=== PATIENT | female | born 1965 | race Caucasian/White ===

== ENCOUNTER → 2017-05-27 08:15 | Outpatient (CLI) | payer BC, SELFPAY ==
[2017-05-27 09:13] LABS: Basophils % 0.5 % (0.1-2.0); Eosinophils # 0.2 K/mm3 (0.0-0.4); Hematocrit 37.1 % (37.0-47.0); Hemoglobin 11.1 g/dL (12.2-16.2); Lymphocytes # 2.1 K/mm3 (0.7-4.5); Lymphocytes % 29.1 K/mm3 (10-50); Mean Corpuscular HGB Conc 29.9 g/dL (31.8-35.4); Mean Corpuscular Hemoglobin 23.4 pg (27.0-31.2); Mean Corpuscular Volume 78.3 fl (81-99); Mean Platelet Volume 7.9 fl (7.4-10.4); Monocytes # 0.4 K/mm3 (0.1-1.0); Monocytes % 5.7 % (1.7-9.3); Neutrophils # 4.6 K/mm3 (1.8-7.8); Neutrophils % 62.7 % (37.0-80.0); Platelet Count 385 K/mm3 (142-424); Red Blood Count 4.74 M/mm3 (4.20-5.40); Red Cell Distribution Width 15.3 % (11.5-17.5); White Blood Count 7.4 K/mm3 (4.8-10.8)
[2017-05-27 09:16] LABS: Alanine Aminotransferase 22 U/L (12-78); Albumin Level 3.4 gm/dL (3.4-5.0); Albumin/Globulin Ratio 0.7 (1.1-1.8); Alkaline Phosphatase 88 U/L (46-116); Anion Gap 8.3 mEq/L (5-15); Aspartate Amino Transferase 14 U/L (15-37); Bilirubin,Total 0.2 mg/dL (0.2-1.0); Blood Urea Nitrogen 15 mg/dL (7-18); Calcium 8.8 mg/dL (8.5-10.1); Carbon Dioxide 30 mmol/L (21.0-32.0); Chloride 107 mmol/L (98-107); Chol/HDL Ratio 2.1 (1-3.5); Cholesterol 165 mg/dL (140-200); Creatinine,Serum 0.89 mg/dL (0.55-1.02); Estimated Glomerular Filt Rate 67 ml/min (>60); GFR (African American) 81 ML/MIN (>60); Globulin 4.6 gm/dl (1.3-3.2); Glucose 89 mg/dL (74-106); HDL Cholesterol 79 mg/dL (29-89); LDL Cholesterol 71 mg/dL (0-130); Potassium 4.3 mmoL/L (3.5-5.1); Sodium 141 mmol/L (136-145); Triglycerides 75 mg/dL (30-200); VLDL Cholesterol 15 mg/dL (0-40)
== END ==
PROVIDERS: Visit Provider Nurse Practitioner Obstetrics & Gynecology
DX: Z01.419 Encounter for gynecological examination (general) (routine) without abnormal findings (principal)
CPT/HCPCS: 36415; 80053; 80061; 85025

== ENCOUNTER → 2018-12-04 12:16 | Outpatient (CLI) | payer BC, SELFPAY ==
--- NOTE | 2018-12-04 12:37 | MM_ITS ---
PROCEDURE: MM DIG SCREENING MAMM BI W/CAD Patient Age:53Y CLINICAL INDICATION: Routine Screening Mammogram No hormones no new complaints noncontributory family history COMPARISON: [facility] DIG MAMM-SCREEN SEA from 10/01/2012 [facility] DIG MAMM-SCREEN SEA from 09/06/2014 [facility] DIG MAMM-SCREEN SEA from 09/11/2015 [facility] DIG MAMM-SCREEN SEA W/CAD from 09/23/2016 TECHNIQUE: Standard CC and MLO images were obtained. R2 CAD reviewed. FINDINGS: Bpup-ps-lpkasuos density breast. Mild asymmetry with with scattered fibroglandular elements slightly more evident throughout left breast. But no dominant mass or significant suspicious new findings in either breast. No suspicious calcifications, overall stable mammogram. CAD computer review unremarkable as well Left breast. Scattered small of areas density at the left breast have remained stable since multiple previous studies but most notable is a most likely intramammary node lateral left breast 4.5 Mm size but unchanged overall stable architecture. Right breast unremarkable stable follow-up 1 year recommended IMPRESSION: Stable mammogram No significant change since previous studies, no new areas of concern bilateral follow-up 1 year recommended BI-RAD Category: 2 Benign Finding(s) FOLLOW-UP: 1YR 1 Year Follow-up (A letter has been sent to the patient regarding results of the study.) Dictated by: Lisandro Teixeira MD 12/07/2018 21:26 Electronically signed by Lisandro Teixeira MD in [place] 12/07/2018 21:28
[2018-12-04 14:31] LABS: Basophils % 0.5 % (0.1-2.0); Eosinophils # 0.2 K/mm3 (0.0-0.4); Eosinophils % 2.3 % (0.1-12.0); Hematocrit 37.2 % (37.0-47.0); Hemoglobin 11.1 g/dL (12.2-16.2); Lymphocytes # 2.9 K/mm3 (0.7-4.5); Lymphocytes % 38.5 % (10-50); Mean Corpuscular HGB Conc 29.9 g/dL (31.8-35.4); Mean Corpuscular Hemoglobin 23.4 pg (27.0-31.2); Mean Corpuscular Volume 78.5 fl (81-99); Mean Platelet Volume 7.5 fl (7.4-10.4); Monocytes # 0.5 K/mm3 (0.1-1.0); Neutrophils % 52.7 % (37.0-80.0); Platelet Count 373 K/mm3 (142-424); Red Blood Count 4.74 M/mm3 (4.20-5.40); Red Cell Distribution Width 14.9 % (11.5-17.5); White Blood Count 7.6 K/mm3 (4.8-10.8)
[2018-12-04 17:34] LABS: Alanine Aminotransferase 20 U/L (12-78); Albumin Level 3.8 gm/dL (3.4-5.0); Albumin/Globulin Ratio 1.1 (1.1-1.8); Alkaline Phosphatase 74 U/L (46-116); Anion Gap 13.1 mEq/L (5-15); Aspartate Amino Transferase 20 U/L (15-37); Bilirubin,Total 0.3 mg/dL (0.2-1.0); Blood Urea Nitrogen 10 mg/dL (7-18); Calcium 9.2 mg/dL (8.5-10.1); Carbon Dioxide 28 mmol/L (21.0-32.0); Chloride 105 mmol/L (98-107); Creatinine,Serum 0.85 mg/dL (0.55-1.02); Estimated Glomerular Filt Rate 70 ml/min (>60); GFR (African American) 85 ML/MIN (>60); Globulin 3.6 gm/dl (1.3-3.2); Glucose 81 mg/dL (74-106); Potassium 5.1 mmoL/L (3.5-5.1); Sodium 141 mmol/L (136-145); Total Protein,Serum 7.4 gm/dL (6.4-8.2)
== END ==
PROVIDERS: PCP Pediatrics; Visit Provider Nurse Practitioner Obstetrics & Gynecology
DX: Z01.419 Encounter for gynecological examination (general) (routine) without abnormal findings (principal); Z12.31 Encounter for screening mammogram for malignant neoplasm of breast
CPT/HCPCS: 36415; 77067; 80053; 85025

== ENCOUNTER → 2019-12-06 08:39 | Outpatient (CLI) | payer BC, SELFPAY ==
--- NOTE | 2019-12-06 08:39 | MM_ITS ---
PROCEDURE: MM DIG SCREENING MAMM BI W/CAD Digital Breast Tomosynthesis Included CLINICAL INDICATION: Routine Screening Mammogram There is no personal or family history of breast cancer. COMPARISON: MG [facility]MSB DIG MAMM-SCREEN SEA from 09/11/2015 MG [facility] DIG MAMM-SCREEN SEA W/CAD from 09/23/2016 MG MM DIG SCREENING MAMM BI W/CAD from 12/04/2018 TECHNIQUE: Standard CC and MLO images and 3D Tomosynthesis was obtained. R2 CAD reviewed. FINDINGS: Moderate scattered fibroglandular densities are seen throughout both breasts. The findings are fairly symmetrical bilaterally. There is a stable benign-appearing nodular density central portion left breast. There is no suspicious lesion in either breast and no suspicious microcalcifications. IMPRESSION: Mild to moderate breast density with no suspicious lesions seen BI-RAD Category: 2 Benign Finding(s) FOLLOW-UP: 1YR 1 Year Follow-up (A letter has been sent to the patient regarding results of the study.) Dictated by: Dr. Deep Graham MD 12/12/2019 17:00 Dr. Deep Graham MD in [place] 12/12/2019 17:00
== END ==
PROVIDERS: PCP Pediatrics; Visit Provider Nurse Practitioner Obstetrics & Gynecology
DX: Z12.31 Encounter for screening mammogram for malignant neoplasm of breast (principal)
CPT/HCPCS: 77063; 77067

== ENCOUNTER → 2019-12-06 09:39 | Outpatient (CLI) | payer BC, SELFPAY ==
[2019-12-06 09:57] LABS: Basophils # 0.1 K/mm3 (0-0.2); Basophils % 0.7 % (0.1-2.0); Eosinophils # 0.2 K/mm3 (0.0-0.4); Hematocrit 35.5 % (37.0-47.0); Hemoglobin 11.3 g/dL (12.2-16.2); Lymphocytes # 2.3 K/mm3 (0.7-4.5); Lymphocytes % 32.4 % (10-50); Mean Corpuscular HGB Conc 31.8 g/dL (31.8-35.4); Mean Corpuscular Hemoglobin 24.8 pg (27.0-31.2); Mean Corpuscular Volume 77.8 fl (81-99); Mean Platelet Volume 7.7 fl (7.4-10.4); Monocytes # 0.3 K/mm3 (0.1-1.0); Monocytes % 4.6 % (1.7-9.3); Neutrophils # 4.3 K/mm3 (1.8-7.8); Neutrophils % 60.2 % (37.0-80.0); Platelet Count 333 K/mm3 (142-424); Red Blood Count 4.56 M/mm3 (4.20-5.40); Red Cell Distribution Width 15.5 % (11.5-17.5); White Blood Count 7.2 K/mm3 (4.8-10.8)
[2019-12-06 10:51] LABS: Alanine Aminotransferase 16 U/L (12-78); Albumin Level 4.1 g/dl (3.5-5.0); Albumin/Globulin Ratio 1.3 (1.1-1.8); Alkaline Phosphatase 90 U/L (38-126); Anion Gap 13.1 mEq/L (5-15); Aspartate Amino Transferase 24 U/L (14-36); Bilirubin,Total 0.3 mg/dl (0.2-1.3); Blood Urea Nitrogen 17 mg/dl (7-17); Calcium 9.4 mg/dl (8.4-10.2); Carbon Dioxide 26 mmol/L (22.0-30.0); Chloride 108 mmol/L (98-107); Chol/HDL Ratio 2.1 (1-3.5); Cholesterol 173 mg/dl (140-200); Estimated Glomerular Filt Rate 65 ml/min (>60); GFR (African American) 79 ML/MIN (>60); Globulin 3.2 g/dL (1.3-3.2); Glucose 99 mg/dl (74-100); HDL Cholesterol 84 mg/dl (40-60); Potassium 5.1 mmoL/L (3.5-5.1); Sodium 142 mmol/L (136-145); Total Protein,Serum 7.3 g/dl (6.3-8.2); Triglycerides 89 mg/dl (30-150); VLDL Cholesterol 18 mg/dL (0-40)
[2019-12-06 11:03] LABS: Direct LDL Cholesterol 77.97 mg/dL (100-129)
== END ==
PROVIDERS: Visit Provider Nurse Practitioner Obstetrics & Gynecology
DX: Z01.419 Encounter for gynecological examination (general) (routine) without abnormal findings (principal)
CPT/HCPCS: 36415; 80053; 80061; 85025

== ENCOUNTER → 2021-01-24 07:59 | Outpatient (CLI) | payer BC, SELFPAY ==
--- NOTE | 2021-01-24 08:00 | MM_ITS ---
PROCEDURE INFORMATION: Exam: MG Bilateral Screening 3D Mammography Exam date and time: 01/24/2021 8:00 AM Age: 55 years old Clinical indication: Encounter for screening mammogram for malignant neoplasm of breast TECHNIQUE: Imaging protocol: Bilateral screening tomosynthesis and 2D mammography including computer-aided detection (CAD) when performed. COMPARISON: 1. MG MM DIG SCREENING MAMM BI W/CAD 12/06/2019 8:47 AM 2. MG MM DIG SCREENING MAMM BI W/CAD 12/04/2018 1:04 PM FINDINGS: MAMMOGRAPHY: Breast composition: The breast tissue is composed of scattered areas of fibroglandular density. Mass: None. Architectural distortion: None. Calcifications: No suspicious calcifications. Asymmetric density: None. Skin thickening: None. Axillary adenopathy: None. IMPRESSION: No mammographic evidence of malignancy. Annual screening is recommended unless otherwise clinically indicated. ASSESSMENT: BI-RADS Category 1: Negative
[2021-01-24 09:20] LABS: Basophils # 0.1 K/mm3 (0-0.2); Basophils % 1.1 % (0.1-2.0); Eosinophils # 0.2 K/mm3 (0.0-0.4); Eosinophils % 2.2 % (0.1-12.0); Hematocrit 36.3 % (37.0-47.0); Hemoglobin 11.2 g/dL (12.2-16.2); Lymphocytes # 2.7 K/mm3 (0.7-4.5); Lymphocytes % 35.5 % (10-50); Mean Corpuscular HGB Conc 30.8 g/dL (31.8-35.4); Mean Corpuscular Volume 77.8 fl (81-99); Mean Platelet Volume 8.2 fl (7.4-10.4); Monocytes # 0.4 K/mm3 (0.1-1.0); Monocytes % 5.1 % (1.7-9.3); Neutrophils # 4.3 K/mm3 (1.8-7.8); Neutrophils % 56.1 % (37.0-80.0); Platelet Count 378 K/mm3 (142-424); Red Blood Count 4.67 M/mm3 (4.20-5.40); Red Cell Distribution Width 15.8 % (11.5-17.5); White Blood Count 7.6 K/mm3 (4.8-10.8)
[2021-01-24 10:06] LABS: Chloride 105 mmol/L (98-107)
[2021-01-24 10:07] LABS: Potassium 4.8 mmoL/L (3.5-5.1); Sodium 141 mmol/L (136-145)
[2021-01-24 10:09] LABS: Alanine Aminotransferase 11 U/L (12-78); Albumin Level 4.4 g/dl (3.5-5.0); Albumin/Globulin Ratio 1.5 (1.1-1.8); Alkaline Phosphatase 73 U/L (38-126); Anion Gap 12.8 mEq/L (5-15); Aspartate Amino Transferase 26 U/L (14-36); Bilirubin,Total 0.2 mg/dl (0.2-1.3); Blood Urea Nitrogen 16 mg/dl (7-17); Carbon Dioxide 28 mmol/L (22.0-30.0); Cholesterol 178 mg/dl (140-200); Estimated Glomerular Filt Rate 74 ml/min (>60); GFR (African American) 90 ML/MIN (>60); Total Protein,Serum 7.4 g/dl (6.3-8.2); Triglycerides 65 mg/dl (30-150); VLDL Cholesterol 13 mg/dL (0-40)
[2021-01-24 10:10] LABS: Calcium 9.4 mg/dl (8.4-10.2); Chol/HDL Ratio 1.9 (1-3.5); Glucose 95 mg/dl (74-100); HDL Cholesterol 95 mg/dl (40-60)
[2021-01-24 10:22] LABS: Direct LDL Cholesterol 66.92 mg/dL (100-129)
[2021-01-24 10:27] LABS: Free Thyroxine Index 1.8 ug/dL (5.93-13.13); T4 (Thyroxine) 7.1 ug/dl (5.53-11.0); Triiodothryronine (T3) Uptake 26 % (23.5-40.5)
[2021-01-24 10:45] LABS: Ferritin 4.84 ng/ml (11.1-264)
== END ==
PROVIDERS: PCP Pediatrics; Visit Provider Nurse Practitioner Obstetrics & Gynecology
DX: Z12.31 Encounter for screening mammogram for malignant neoplasm of breast (principal); R53.82 Chronic fatigue, unspecified
CPT/HCPCS: 36415; 77063; 77067; 80053; 80061; 82728; 84436; 84443; 84479; 85025

== ENCOUNTER → 2022-04-22 08:02 | Outpatient (CLI) | payer BC, SELFPAY ==
--- NOTE | 2022-04-22 08:09 | MM_ITS ---
PROCEDURE INFORMATION: Exam: MG Bilateral Screening 3D Mammography Exam date and time: 04/22/2022 8:01 AM Age: 57 years old Clinical indication: Screening mammogram TECHNIQUE: Imaging protocol: Bilateral Screening tomosynthesis and 2D mammography including computer-aided detection (CAD) when performed. COMPARISON: 1. MG MM DIG SCREENING MAMM BI W/CAD 01/24/2021 8:01 AM 2. MG MM DIG SCREENING MAMM BI W/CAD 12/06/2019 8:47 AM 3. MG MM DIG SCREENING MAMM BI W/CAD 12/04/2018 1:04 PM 4. MG DMSB DIG MAMM-SCREEN SEA W/CAD 09/23/2016 11:03 AM FINDINGS: MAMMOGRAPHY: Breast composition: There are scattered areas of fibroglandular density. Mass: Stable benign-appearing subcentimeter nodules are present in the left breast. No new or morphologically suspicious nodule has developed to suggest malignancy. Architectural distortion: No new or suspicious architectural distortion. Calcifications: No new or suspicious calcifications are present Asymmetric density: No new or suspicious asymmetric density is present Skin thickening: None. Axillary adenopathy: None. IMPRESSION: No mammographic evidence of malignancy. Recommend annual screening mammography unless otherwise clinically indicated. ASSESSMENT: BI-RADS category 2: Benign
== END ==
PROVIDERS: PCP Pediatrics; Visit Provider Nurse Practitioner Obstetrics & Gynecology
DX: Z12.31 Encounter for screening mammogram for malignant neoplasm of breast (principal)
CPT/HCPCS: 36415; 77063; 77067; 83540; 83550; 85025

== ENCOUNTER → 2022-07-03 16:20 | Outpatient (CLI) | payer BC, SELFPAY ==
[2022-07-03 17:57] LABS: Basophils % 0.5 % (0.1-2.0); Eosinophils # 0.1 K/mm3 (0.0-0.4); Eosinophils % 1.9 % (0.1-12.0); Hematocrit 33.7 % (37.0-47.0); Hemoglobin 9.8 g/dL (12.2-16.2); Lymphocytes # 2.7 K/mm3 (0.7-4.5); Mean Corpuscular HGB Conc 29.2 g/dL (31.8-35.4); Mean Corpuscular Hemoglobin 21.7 pg (27.0-31.2); Mean Corpuscular Volume 74.4 fl (81-99); Mean Platelet Volume 6.7 fl (7.4-10.4); Monocytes # 0.4 K/mm3 (0.1-1.0); Monocytes % 5.2 % (1.7-9.3); Neutrophils # 4.1 K/mm3 (1.8-7.8); Neutrophils % 55.4 % (37.0-80.0); Platelet Count 336 K/mm3 (142-424); Red Blood Count 4.54 M/mm3 (4.20-5.40); Red Cell Distribution Width 16.1 % (11.5-17.5); White Blood Count 7.4 K/mm3 (4.8-10.8)
[2022-07-04 16:24] LABS: Iron 27 ug/dL (37-170)
[2022-07-04 16:30] LABS: Total Iron Binding Capacity 518 ug/dL (265-497)
[2022-07-04 20:53] LABS: Folate > 20.00 ng/mL
[2022-07-04 21:41] LABS: Ferritin 4.12 ng/ml (11.1-264)
[2022-07-05 09:26] LABS: Vitamin B12 396 pg/mL (239-931)
== END ==
PROVIDERS: PCP Pediatrics; Visit Provider Nurse Practitioner Obstetrics & Gynecology
DX: D64.9 Anemia, unspecified (principal)
CPT/HCPCS: 82607; 82728; 82746; 83540; 83550; 85025

== ENCOUNTER → 2022-07-04 13:34 | Outpatient (CLI) | payer BC, SELFPAY | PROVIDERS: PCP Nurse Practitioner Obstetrics & Gynecology; Visit Provider Nurse Practitioner Obstetrics & Gynecology | DX: D64.9 Anemia, unspecified (principal) | CPT/HCPCS: 82607; 82728; 82746; 83540; 83550 ==

== ENCOUNTER 2022-08-30 10:40 | Day surgery (SDC) | payer BC, SELFPAY ==
[2022-08-29 09:42] VITALS: BMI 31.5
[2022-08-30 11:04] VITALS: BP 141/85; PULSE 71; RESP 18; TEMP 36.6; O2SAT 97
--- NOTE | 2022-08-30 11:18 | EXP.ANES.CKL ---
[facility] Disclaimer: The information contained in this section may have been updated after the patient was seen, as this information can be updated by other users. Medical History History of anemia History of COVID-19 Surgical History No history of previous surgery Family History Other Cancer Social History Smoking Status: Never smoker alcohol intake: never substance use type: denies use current occupational status: employed Travel in the last 8 weeks: None [facility] Anesthesia Checklist Patient Identification Patient Identification: Arm Band and Verbal (Name & ) Structural Data Admitted From: Home Planned Operative Procedure/s: EGD/Colonoscopy Consent for Planned Operative Procedure(s) Verified: Yes NPO Status Verified Time NPO: 00:00 Airway Assessment C-Spine Mobility Assessed: Yes TMJ Mobility Assessed: Yes Dentition: Good Dentition Neurological Assessment Level of Consciousness: Awake Hx Seizures: No Numbness or tingling in extremities: No Anesthesia Plan Anesthesia Risk discussed: Yes Anesthesia Plan: Verified ASA Class: I Anesthesia Type: MAC
[2022-08-30 11:26] VITALS: O2SAT 97
[2022-08-30 12:05] VITALS: BP 110/61; PULSE 64; RESP 18; TEMP 36.3; O2SAT 100
--- NOTE | 2022-08-30 12:05 | HMH.SCOPE ---
Procedure: Date: 08/30/22 Patient Date of :: 1965 Procedure Performed:: Esophagogastroduodenoscopy with biopsy Total colonoscopy with polypectomy using biopsy forceps Indications:: Patient is a pleasant 57-year-old female referred by Dr. Uriel Loyola for iron deficiency anemia. She is a schoolteacher. Patient states that she has had borderline anemia for many years. She was undergoing a recent routine wellness check in Dr. Loyola's office and was found to have anemia. She was started on some ygzv-ogt-qhuoedp iron supplementation. She then followed up in his office recently for repeat blood work. She was found to have progressive anemia with hemoglobin of 9.8. Previously hemoglobin is 11. Repeat iron studies after [id number] supplementation reveals somewhat lower total iron of 27, total iron binding capacity of 518, ferritin 4.12. B12 is 396. She denies melena or rectal bleeding but her stools have changed since she has been taking some relatively high-dose [id number] iron supplementation. She never had prior colonoscopy. She did previously undergo Cologuard several years ago which was reportedly negative. Performing Provider:: Gonzalo Garsia MD Referring Provider:: Uriel Hewitt Sedation:: MAC sedation Procedure:: Patient history was obtained and appropriate physical examination was performed. Patient's medications and allergies were reviewed. Informed consent was obtained after explaining the benefits, alternatives, and risks of the procedure including, but not limited to, bleeding, perforation, missed lesions, and adverse reaction to anesthesia medications. Patient was transported to endoscopy procedure room. Patient was connected to monitoring devices. Throughout the procedure the patient's blood pressure, pulse, and oxygen saturations were monitored continuously. Patient identification and planned procedure were verified by the staff. Attention was first turned to upper endoscopy. Olympus endoscope was inserted via the oropharynx. There was some minor cricopharyngeal spasm. Esophagus appeared normal. Gastroesophageal junction was encountered at 38 cm from the incisors. Stomach was cannulated and insufflated. Retroflexion revealed no evidence of any hiatal hernia. There is some diffuse mild nonerosive gastropathy. Pylorus was traversed. Duodenum appeared normal. A couple of biopsies were obtained within the gastric lumen. A couple biopsies were obtained at the gastroesophageal junction. Endoscope was withdrawn. Attention was then turned to colonoscopy. Patient was positioned in lateral decubitus position. Digital anorectal exam was performed. Variable stiffness Olympus colonoscope was inserted and advanced under direct visualization to the cecum. Adequacy of the colonic preparation was noted. The colonoscope was advanced a short distance into the terminal ileum. The colonoscope was then slowly withdrawn while carefully examining the color, texture, anatomy, and integrity of the mucosoa circumferentially. Within the rectum retroflexion was performed. Colonoscope was then withdrawn. . She had some colonic atony and redundancy. There was a minuscule periappendiceal polyp which was removed with cold biopsy forceps. This was sent as cecal polyp. Remainder of the colon unremarkable. Findings:: Gastroesophageal junction at 38 cm Mild diffuse nonerosive gastropathy Minuscule periappendiceal cecal polyp Recommendations:: No etiology on EGD or colonoscopy that would explain iron deficiency anemia. Unclear if she has had stool testing. May be etiology other than GI blood loss source. Consideration may be given for hematology consultation. Repeat colonoscopy pending pathology, likely 5 years Complications:: None immediate Estimated blood obtained (mL): 1 Colonoscopy Component Colonoscopy Component Was a colonoscopy performed during today's procedure?: Yes Recommended follow up colonoscopy of
[2022-08-30 12:15] VITALS: BP 105/72; PULSE 66; RESP 18; O2SAT 100
[2022-08-30 12:30] VITALS: BP 120/80; PULSE 66; RESP 18; O2SAT 100
== END 2022-08-30 12:33 | disposition home or self-care (01) ==
PROVIDERS: PCP Pediatrics; Visit Provider Surgery
PROC: 0DJ08ZZ Inspection of Upper Intestinal Tract, Via Natural or Artificial Opening Endoscopic (ICD-10-PCS; CPT 43235; principal; 2022-08-30 11:30)
DX: D50.9 Iron deficiency anemia, unspecified (principal); B96.81 Helicobacter pylori [H. pylori] as the cause of diseases classified elsewhere; K29.70 Gastritis, unspecified, without bleeding; K31.A0 Gastric intestinal metaplasia, unspecified; K20.90 Esophagitis, unspecified without bleeding; D12.0 Benign neoplasm of cecum
CPT/HCPCS: 43239; 45380

== ENCOUNTER → 2022-11-21 15:00 | Outpatient (CLI) | payer BC, SELFPAY ==
[2022-11-21 17:08] LABS: Basophils % 0.4 % (0.1-2.0); Chloride 108 mmol/L (98-107); Eosinophils # 0.1 K/mm3 (0.0-0.4); Eosinophils % 1.6 % (0.1-12.0); Hematocrit 38.4 % (37.0-47.0); Hemoglobin 12.1 g/dL (12.2-16.2); Lymphocytes # 2.8 K/mm3 (0.7-4.5); Lymphocytes % 34.9 % (10-50); Mean Corpuscular HGB Conc 31.6 g/dL (31.8-35.4); Mean Corpuscular Hemoglobin 27.4 pg (27.0-31.2); Mean Corpuscular Volume 86.5 fl (81-99); Mean Platelet Volume 8.3 fl (7.4-10.4); Monocytes # 0.4 K/mm3 (0.1-1.0); Monocytes % 4.7 % (1.7-9.3); Neutrophils # 4.7 K/mm3 (1.8-7.8); Neutrophils % 58.4 % (37.0-80.0); Platelet Count 310 K/mm3 (142-424); Red Blood Count 4.43 M/mm3 (4.20-5.40); Red Cell Distribution Width 14.8 % (11.5-17.5); Sodium 143 mmol/L (136-145); White Blood Count 8.1 K/mm3 (4.8-10.8)
[2022-11-21 17:10] LABS: Alanine Aminotransferase 21 U/L (12-78); Aspartate Amino Transferase 26 U/L (14-36); Blood Urea Nitrogen 12 mg/dl (7-17); Estimated Glomerular Filt Rate 74 ml/min (>60); GFR (African American) 89 ML/MIN (>60)
[2022-11-21 17:11] LABS: Albumin Level 4.1 g/dl (3.5-5.0); Albumin/Globulin Ratio 1.3 (1.1-1.8); Alkaline Phosphatase 73 U/L (38-126); Calcium 8.8 mg/dl (8.4-10.2); Carbon Dioxide 26 mmol/L (22.0-30.0); Globulin 3.1 g/dL (1.3-3.2); Glucose 86 mg/dl (74-100); Iron 42 ug/dL (37-170); Total Protein,Serum 7.2 g/dl (6.3-8.2)
[2022-11-21 17:12] LABS: Bilirubin,Total 0.1 mg/dl (0.2-1.3)
[2022-11-21 17:22] LABS: Total Iron Binding Capacity 475 ug/dL (265-497)
[2022-11-21 17:47] LABS: Ferritin 6.35 ng/ml (11.1-264)
[2022-11-23 11:17] LABS: Haptoglobin 247 mg/dL (33-346)
[2022-11-23 14:37] LABS: Deamidated Gliadin Abs, IgA 5 units (0-19); Deamidated Gliadin Abs, IgG 3 units (0-19); Tissue Transglutaminase IgA Ab <2 U/mL (0-3); Tissue Transglutaminase IgG Ab 5 U/mL (0-5)
[2022-11-25 15:58] LABS: Endomysial IgA Antibody Negative (Negative)
[2022-11-27 08:52] LABS: Reticulin IgA Antibody Negative titer (Neg:<1:2.5)
== END ==
PROVIDERS: PCP Pediatrics; Visit Provider Internal Medicine Medical Oncology
DX: D50.9 Iron deficiency anemia, unspecified (principal)
CPT/HCPCS: 36415; 80053; 82728; 83010; 83516; 83540; 83550; 85025; 86255; 86256

== ENCOUNTER 2022-11-27 15:38 | Outpatient (CLI) | payer BC, SELFPAY ==
[2022-11-27 16:05] VITALS: BP 153/85; PULSE 70; RESP 16; O2SAT 96
--- NOTE | 2022-11-27 16:38 | PC.NURSE ---
report received from Sally Granado RN, velma infusing and pt in stable condition. Assuming the care of the pt at this time.
[2022-11-27 16:54] VITALS: BP 146/90; PULSE 71; RESP 18; O2SAT 98
== END 2022-11-27 16:56 | disposition home or self-care (01) ==
LOC: INF 15:39
PROVIDERS: PCP Pediatrics; Visit Provider Internal Medicine Medical Oncology
DX: D50.9 Iron deficiency anemia, unspecified (principal)
CPT/HCPCS: 96365; J1756

== ENCOUNTER 2022-12-04 15:31 | Outpatient (CLI) | payer BC, SELFPAY ==
[2022-12-04 15:46] VITALS: BP 110/86; PULSE 68; RESP 18; TEMP 36.7; O2SAT 97
[2022-12-04 16:30] VITALS: BP 114/82; PULSE 70; RESP 18; O2SAT 97
== END 2022-12-04 16:33 | disposition home or self-care (01) ==
LOC: INF 15:32
PROVIDERS: PCP Pediatrics; Visit Provider Internal Medicine Medical Oncology
DX: D50.9 Iron deficiency anemia, unspecified (principal)
CPT/HCPCS: 96365; J1756

== ENCOUNTER 2022-12-09 08:57 | Outpatient (CLI) | payer BC, SELFPAY ==
[2022-12-09 09:25] VITALS: BP 161/86; PULSE 74; RESP 18; TEMP 37; O2SAT 96
[2022-12-09 10:09] VITALS: BP 151/82; PULSE 70; RESP 18; O2SAT 97
== END 2022-12-09 10:10 | disposition home or self-care (01) ==
LOC: INF 08:58
PROVIDERS: PCP Pediatrics; Visit Provider Internal Medicine Medical Oncology
DX: D50.9 Iron deficiency anemia, unspecified (principal)
CPT/HCPCS: 96365; J1756

== ENCOUNTER 2022-12-16 15:34 | Outpatient (CLI) | payer BC, SELFPAY ==
[2022-12-16 15:53] VITALS: BP 137/89; PULSE 77; RESP 18; TEMP 36.7; O2SAT 98
[2022-12-16 16:30] VITALS: BP 154/83; PULSE 55; RESP 18; O2SAT 98
== END 2022-12-16 16:35 | disposition home or self-care (01) ==
LOC: INF 15:35
PROVIDERS: PCP Pediatrics; Visit Provider Internal Medicine Medical Oncology
DX: D50.9 Iron deficiency anemia, unspecified (principal)
CPT/HCPCS: 96365; J1756

== ENCOUNTER 2022-12-25 15:35 | Outpatient (CLI) | payer BC, SELFPAY ==
[2022-12-25 15:49] VITALS: BP 143/90; PULSE 75; RESP 18; O2SAT 99
[2022-12-25 16:19] VITALS: BP 144/103; PULSE 78; RESP 18
== END 2022-12-25 16:19 | disposition home or self-care (01) ==
LOC: INF 15:35
PROVIDERS: PCP Pediatrics; Visit Provider Internal Medicine Medical Oncology
DX: D50.9 Iron deficiency anemia, unspecified (principal)
CPT/HCPCS: 96365; J1756

== ENCOUNTER → 2023-02-06 16:06 | Outpatient (CLI) | payer BC, SELFPAY ==
[2023-02-06 16:49] LABS: Basophils # 0.1 K/mm3 (0-0.2); Basophils % 0.6 % (0.1-2.0); Eosinophils # 0.2 K/mm3 (0.0-0.4); Eosinophils % 1.7 % (0.1-12.0); Hematocrit 41.6 % (37.0-47.0); Lymphocytes % 34.7 % (10-50); Mean Corpuscular HGB Conc 33.7 g/dL (31.8-35.4); Mean Corpuscular Hemoglobin 30.4 pg (27.0-31.2); Mean Corpuscular Volume 90.4 fl (81-99); Mean Platelet Volume 7.9 fl (7.4-10.4); Monocytes # 0.4 K/mm3 (0.1-1.0); Monocytes % 5.1 % (1.7-9.3); Neutrophils # 5.1 K/mm3 (1.8-7.8); Platelet Count 283 K/mm3 (142-424); Red Cell Distribution Width 14.4 % (11.5-17.5); White Blood Count 8.7 K/mm3 (4.8-10.8)
[2023-02-06 17:08] LABS: Iron 89 ug/dL (37-170)
[2023-02-06 17:18] LABS: Total Iron Binding Capacity 340 ug/dL (265-497)
[2023-02-06 17:44] LABS: Ferritin 86.4 ng/ml (11.1-264)
== END ==
PROVIDERS: PCP Pediatrics; Visit Provider Internal Medicine Medical Oncology
DX: D50.9 Iron deficiency anemia, unspecified (principal)
CPT/HCPCS: 36415; 82728; 83540; 83550; 85025

== ENCOUNTER 2023-06-11 11:26 | Outpatient (CLI) | payer BC, SELFPAY ==
[2023-06-11 12:12] LABS: Basophils # 0.1 K/mm3 (0-0.2); Basophils % 1.5 % (0.1-2.0); Eosinophils # 0.1 K/mm3 (0.0-0.4); Eosinophils % 1.5 % (0.1-12.0); Hematocrit 44.2 % (37.0-47.0); Hemoglobin 14.3 g/dL (12.2-16.2); Lymphocytes # 2.3 K/mm3 (0.7-4.5); Lymphocytes % 34.1 % (10-50); Mean Corpuscular HGB Conc 32.3 g/dL (31.8-35.4); Mean Corpuscular Hemoglobin 30.5 pg (27.0-31.2); Mean Corpuscular Volume 94.4 fl (81-99); Mean Platelet Volume 7.8 fl (7.4-10.4); Monocytes # 0.4 K/mm3 (0.1-1.0); Monocytes % 5.3 % (1.7-9.3); Neutrophils # 3.9 K/mm3 (1.8-7.8); Neutrophils % 57.8 % (37.0-80.0); Platelet Count 255 K/mm3 (142-424); Red Blood Count 4.68 M/mm3 (4.20-5.40); White Blood Count 6.8 K/mm3 (4.8-10.8)
[2023-06-11 12:42] LABS: Iron 109 ug/dL (37-170)
[2023-06-11 12:54] LABS: Total Iron Binding Capacity 295 ug/dL (265-497)
[2023-06-11 13:19] LABS: Ferritin 73.3 ng/ml (11.1-264)
== END 2023-06-11 23:59 | disposition home or self-care (01) ==
LOC: LAB 11:27
PROVIDERS: PCP Pediatrics; Visit Provider Internal Medicine Medical Oncology
DX: D50.9 Iron deficiency anemia, unspecified (principal)
CPT/HCPCS: 36415; 82728; 83540; 83550; 85025

== ENCOUNTER 2024-06-04 12:54 | Outpatient (CLI) | payer BC, SELFPAY ==
--- NOTE | 2024-06-04 13:30 | MM_ITS ---
PROCEDURE INFORMATION: Exam: MG Bilateral Screening 3D Mammography Exam date and time: 06/04/2024 1:30 PM Age: 59 years old Clinical indication: Screening. No family history of breast cancer. TECHNIQUE: Imaging protocol: Bilateral Screening tomosynthesis and 2D mammography including computer-aided detection (CAD) when performed. COMPARISON: 1. MG MM DIG SCREENING MAMM BI W/CAD 04/22/2022 8:01 AM 2. MG MM DIG SCREENING MAMM BI W/CAD 01/24/2021 8:01 AM 3. MG MM DIG SCREENING MAMM BI W/CAD 12/06/2019 8:47 AM 4. MG MM DIG SCREENING MAMM BI W/CAD 12/04/2018 1:04 PM FINDINGS: MAMMOGRAPHY: Breast composition: There are scattered areas of fibroglandular density. Mass: No suspicious mass. Architectural distortion: None. Calcifications: No suspicious calcifications. Asymmetric density: No developing asymmetry. Skin thickening: None. Axillary adenopathy: None. IMPRESSION: No mammographic evidence of malignancy. Annual screening is recommended unless otherwise clinically indicated. ASSESSMENT: BI-RADS Category 1: Negative.
[2024-06-04 13:31] LABS: Basophils % 0.5 % (0.1-2.0); Eosinophils # 0.1 K/mm3 (0.0-0.4); Eosinophils % 0.9 % (0.1-12.0); Hematocrit 41.2 % (37.0-47.0); Hemoglobin 13.8 g/dL (12.2-16.2); Lymphocytes # 2.5 K/mm3 (0.7-4.5); Lymphocytes % 31.2 % (10-50); Mean Corpuscular HGB Conc 33.5 g/dL (31.8-35.4); Mean Corpuscular Hemoglobin 29.2 pg (27.0-31.2); Mean Corpuscular Volume 87.3 fl (81-99); Mean Platelet Volume 9.8 fl (7.4-10.4); Monocytes # 0.5 K/mm3 (0.1-1.0); Monocytes % 6.1 % (1.7-9.3); Neutrophils # 4.8 K/mm3 (1.8-7.8); Neutrophils % 60.9 % (37.0-80.0); Platelet Count 303 K/mm3 (142-424); Red Blood Count 4.72 M/mm3 (4.20-5.40); Red Cell Distribution Width 12.8 % (11.5-17.5); White Blood Count 7.9 K/mm3 (4.8-10.8)
[2024-06-04 14:24] LABS: Alanine Aminotransferase 20 U/L (12-78); Albumin Level 4.4 g/dl (3.5-5.0); Albumin/Globulin Ratio 1.4 (1.1-1.8); Alkaline Phosphatase 86 U/L (38-126); Anion Gap 12.4 mEq/L (5-15); Aspartate Amino Transferase 23 U/L (14-36); Bilirubin,Total 0.6 mg/dl (0.2-1.3); Blood Urea Nitrogen 13 mg/dl (7-17); Calcium 9.9 mg/dl (8.4-10.2); Carbon Dioxide 29 mmol/L (22.0-30.0); Chloride 104 mmol/L (98-107); Cholesterol 178 mg/dl (140-200); Estimated Glomerular Filt Rate 64 ml/min (>60); GFR (African American) 78 ML/MIN (>60); Globulin 3.2 g/dL (1.3-3.2); Glucose 91 mg/dl (74-100); HDL Cholesterol 88 mg/dl (40-60); Potassium 4.4 mmoL/L (3.5-5.1); Sodium 141 mmol/L (136-145); Total Protein,Serum 7.6 g/dl (6.3-8.2); Triglycerides 112 mg/dl (30-150); VLDL Cholesterol 22 mg/dL (0-40)
[2024-06-04 14:35] LABS: Direct LDL Cholesterol 69.07 mg/dL (100-129)
[2024-06-04 14:43] LABS: Iron 120 ug/dL (37-170)
[2024-06-04 14:52] LABS: Total Iron Binding Capacity 348 ug/dL (265-497)
[2024-06-04 15:23] LABS: HIV Combo NEGATIVE (Negative)
[2024-06-04 15:32] LABS: Hepatitis C Ab Qual. W/ RFX NEGATIVE (Negative)
[2024-06-07 12:07] LABS: Triiodothryronine (T3) Uptake 29 % (23.5-40.5)
[2024-06-14 15:42] LABS: 1,25 Dihydroxy Vitamin D 36 pg/mL (.); 1,25-Dihydroxy, Vitamin D-2 <10 pg/mL (.); 1,25-Dihydroxy, Vitamin D-3 34 pg/mL (.)
== END 2024-06-04 23:59 | disposition home or self-care (01) ==
LOC: RAD 12:55
PROVIDERS: PCP Pediatrics; Visit Provider Nurse Practitioner Obstetrics & Gynecology
DX: Z01.419 Encounter for gynecological examination (general) (routine) without abnormal findings (principal); Z12.31 Encounter for screening mammogram for malignant neoplasm of breast; R53.83 Other fatigue
CPT/HCPCS: 36415; 77063; 77067; 80053; 80061; 82652; 83540; 83550; 84436; 84443; 84479; 85025; 86803; 87389